=== PATIENT | female | born 1990 | race Caucasian/White ===

== ENCOUNTER 2018-09-12 10:20 | Observation (INO) | payer OTHER ==
[2016-02-01 21:10] VITALS: O2SAT 96
[2018-09-12 10:55] VITALS: TEMP 97.1
[2018-09-12 12:51] VITALS: BP 123/73; PULSE 88; RESP 18
== END 2018-09-12 13:40 | disposition home or self-care (01) ==
LOC: OB 10:20
PROVIDERS: ADMIT Family Medicine; ATTEND Family Medicine
DX: O47.1 False labor at or after 37 completed weeks of gestation (principal); Z3A.38 38 weeks gestation of pregnancy
CPT/HCPCS: 59025; 84112

== ENCOUNTER 2018-09-23 07:52 | Inpatient (IN) | payer OTHER ==
[~2018-09-23 07:52] MED LIST: AMPICILLIN 1 GM PDS 2 GM in SODIUM CHLORIDE 0.9% 100 ML 100 ML IV SCH; CARBOPROST 250 MCG/ML SOL IM PRN; FENTANYL 100MCG/2ML SOL IV PRN; LACTATED RINGERS 1,000 ML IV PRN; MEPIVACAINE HCL 1% MPF 30 ML/VIAL SOL INFIL PRN; METHYLERGONOVINE MALEATE 0.2 MG/ML SOL IM PRN; OXYTOCIN 10000 MU/ML SOL IM PRN; SODIUM CHLORIDE 0.9% 50 ML 25 ML IV PRN; SODIUM CHLORIDE 0.9% FLUSH 10 ML SOL IV PRN
[2018-09-23] MEDS ORDERED: AMPICILLIN 1 GM PDS ONE ×2 (08:37→13:09)
[2018-09-23] MEDS: SODIUM CHLORIDE 0.9% FLUSH 10 ML SOL IV SCH ×2 (08:54→21:24)
[2018-09-23] MEDS: AMPICILLIN 1 GM PDS 1 GM in SODIUM CHLORIDE 0.9% 100 ML 100 ML IV SCH ×2 (13:15→19:32)
[2018-09-23] MEDS ORDERED: IBUPROFEN 600 MG TAB ONE (15:33)
[2018-09-23] MEDS: IBUPROFEN 600 MG TAB PO PRN ×2 (15:35→21:24)
[2018-09-23] MEDS ORDERED: BENZOCAINE/MENTHOL 1 SPR TOP PRN (18:28)
[2018-09-23] MEDS ORDERED: APAP/HYDROCODONE 1 EACH TABLET PO PRN (18:28)
[2018-09-23] MEDS ORDERED: FLEET ENEMA PR PRN (18:28)
[2018-09-23] MEDS ORDERED: TEMAZEPAM 15MG 15 MG CAP PO PRN (18:28)
[2018-09-23] MEDS ORDERED: BISACODYL 10 MG SUP PR PRN (18:28)
[2018-09-23] MEDS ORDERED: METHYLERGONOVINE MALEATE 0.2 MG TAB PO PRN (18:28)
[2018-09-23] MEDS ORDERED: WITCH HAZEL 1 EA PAD TOP PRN (18:28)
[2018-09-23] MEDS: MULTIVITAMIN2 1 EA TAB PO SCH (21:24)
[2018-09-23] MEDS: FOLIC ACID 1 MG TAB PO SCH (21:24)
[2018-09-23] MEDS: DOCUSATE SODIUM 100 MG SGL PO SCH (21:24)
[2018-09-24] MEDS: IBUPROFEN 600 MG TAB PO PRN ×3 (05:50→19:56)
[2018-09-24] MEDS: SODIUM CHLORIDE 0.9% FLUSH 10 ML SOL IV SCH ×3 (05:51→22:38)
[2018-09-24 06:33] VITALS: RESP 16
[2018-09-24] MEDS: DOCUSATE SODIUM 100 MG SGL PO SCH ×2 (09:13→21:24)
[2018-09-24] MEDS: MULTIVITAMIN2 1 EA TAB PO SCH (21:24)
[2018-09-24] MEDS: FOLIC ACID 1 MG TAB PO SCH (21:24)
[2018-09-25] MEDS: IBUPROFEN 600 MG TAB PO PRN ×2 (03:27→10:46)
[2018-09-25] MEDS: DOCUSATE SODIUM 100 MG SGL PO SCH (08:59)
[2018-09-25] MEDS ORDERED: PNEUMOC 13-VAL CONJ-DIP CRM/PF 0.5 ML SYRINGE IM ONE ×2 (13:07→14:23)
[2018-09-25 13:38] VITALS: BP 138/87; PULSE 78; TEMP 97.9; O2SAT 98
== END 2018-09-25 14:40 | disposition home or self-care (01) | DRG 560 ==
LOC: OBSVTOIN 07:52 → OB 07:52
PROVIDERS: ADMIT Family Medicine; ATTEND Family Medicine
PROC: 10E0XZZ Delivery of Products of Conception, External Approach (ICD-10-PCS; principal; 2018-09-23)
PROC: 3E04329 Introduction of Other Anti-infective into Central Vein, Percutaneous Approach (ICD-10-PCS; 2018-09-23)
DX: O80 Encounter for full-term uncomplicated delivery (principal); O99.824 Streptococcus B carrier state complicating childbirth; Z3A.39 39 weeks gestation of pregnancy; Z37.0 Single live birth
CPT/HCPCS: 36415; 59025; 85018; 90670; J0290; J0670; J2590; A9270-GY; G0008